=== PATIENT | male | born 1985 | race Caucasian/White ===

== ENCOUNTER 2018-07-26 21:05 | Emergency (ER) | payer SELFPAY | END 2018-07-27 02:04 | disposition left against medical advice (07) | LOC: ER 21:05 | DX: R50.9 Fever, unspecified (principal); R51 Headache; Z53.21 Procedure and treatment not carried out due to patient leaving prior to being seen by health care provider ==

== ENCOUNTER 2022-04-16 21:40 | Emergency (ER) | payer SELFPAY ==
[~2022-04-16] VITALS: Ht 167.6 cm; Wt 86.0 kg
[2022-04-16 22:08] VITALS: BP 131/78
[2022-04-16 23:31] LABS: HEMATOCRIT. 47.7 % (42.0-52.0); HEMOGLOBIN. 16.2 g/dL (14.0-18.0); MEAN CORPUSCULAR HEMOGLOBIN 29.6 pg (28.0-32.0); MEAN CORPUSCULAR VOLUME 87.4 fL (80.0-94.0); MEAN PLATELET VOLUME 7.1 fl (7.4-10.4); PLATELET 350 x1000/uL (130-400); RED BLOOD CELL COUNT 5.46 mill/uL (4.7-6.1); RED CELL DISTRIBUTION WIDTH 13.6 % (11.6-14.6)
[2022-04-16 23:40] LABS: PROTHROMBIN TIME 10.9 sec (9.6-11.0)
[2022-04-16 23:57] LABS: CHLORIDE 104 mEq/L (98-107)
[2022-04-17 02:17] LABS: PLATELET ESTIMATE NORMAL
== END 2022-04-17 02:44 | disposition left against medical advice (07) ==
LOC: ER 21:40
DX: R07.89 Other chest pain (principal); R51.9 Headache, unspecified; Z53.21 Procedure and treatment not carried out due to patient leaving prior to being seen by health care provider
CPT/HCPCS: 36415; 71045; 80053; 84484; 85025; 93005; 99285